=== PATIENT | female | born 2000 | race African-American/Black ===

== ENCOUNTER 2024-12-31 02:00 | Emergency (ER) | payer MEDICAID ==
[~2024-12-31] VITALS: Ht 154.9 cm; Wt 132.0 kg
[2024-12-31 02:05] VITALS: O2SAT 98
[2024-12-31 02:48] LABS: BASOPHILS % 0.7 % (0.0-2.0); EOSINOPHILS % 5.6 % (0.0-5.0); HEMATOCRIT. 40.9 % (36.0-48.0); HEMOGLOBIN. 13.3 g/dL (12.0-16.0); LYMPHOCYTES % 21.4 % (20.0-50.0); MEAN PLATELET VOLUME 8.5 fl (7.4-10.4); MONOCYTES % 8.9 % (2.0-8.0); NEUTROPHILS % 63.4 % (40.0-76.0); PLATELET 265 x1000/uL (130-400); RED BLOOD CELL COUNT 5.04 mill/uL (4.2-5.4); RED CELL DISTRIBUTION WIDTH 14.2 % (11.6-14.6)
[2024-12-31 02:50] LABS: *AMPHETAMINES SCREEN URINE NEGATIVE (NEGATIVE); *BARBITURATES SCREEN URINE NEGATIVE (NEGATIVE); *BENZODIAZEPINES SCREEN URINE NEGATIVE (NEGATIVE); *COCAINE SCREEN URINE NEGATIVE (NEGATIVE); CANNABINOID URINE SCREEN NEGATIVE (NEGATIVE); ECSTASY MDMA SCREEN URINE NEGATIVE (NEGATIVE); METHADONE URINE SCREEN NEGATIVE (NEGATIVE); OPIATES URINE SCREEN NEGATIVE (NEGATIVE); PHENCYCLIDINE URINE SCREEN NEGATIVE (NEGATIVE)
[2024-12-31 02:57] LABS: CREATININE 1.0 mg/dL (0.6-1.0); ETHANOL BLOOD < 10 mg/dL (<10); HCG SCREEN NEGATIVE; UREA NITROGEN BLOOD 15 mg/dL (9-23)
[2024-12-31 02:59] LABS: ASPARTATE AMINOTRANSFERASE 22 IU/L (<34); BILIRUBIN DIRECT 0.2 mg/dL (<=3.0); BILIRUBIN TOTAL 0.5 mg/dL (0.1-1.0); PROTEIN TOTAL 8.0 g/dL (6.0-8.3)
[2024-12-31 11:42] VITALS: BP 150/99; PULSE 106; RESP 18; TEMP 36.8; O2SAT 99
== END 2024-12-31 12:05 | disposition home or self-care (01) ==
LOC: EDBD 02:00 → ER 02:00
DX: R44.0 Auditory hallucinations (principal); Z79.899 Other long term (current) drug therapy
CPT/HCPCS: 36415; 80048; 80076; 80305; 80307; 80320; 80329; 84703; 85025; 93005; 99285; G0480